=== PATIENT | female | born 1950 | race African-American/Black ===

== ENCOUNTER → 2017-08-11 | Outpatient (CLI) | payer MEDICARE, OTHER ==
--- NOTE | 2017-08-11 17:54 | WOMENS IMAGING REPORT ---
EXAM DESCRIPTION: BILAT SCREENING MAMMO W/CAD COMPLETED DATE/TIME: 08/11/2017 8:52 am REASON FOR STUDY: SCREENING MAMMO Z12.31 ENCNTR SCREEN MAMMOGRAM FOR MALIGNANT NEOPLASM OF BRY COMPARISON: Multiple 2008 TECHNIQUE: Standard craniocaudal and mediolateral oblique views of each breast recorded using digita l acquisition. LIMITATIONS: None. FINDINGS: Findings present which are benign by mammographic criteria. No suspicious masses, calcifi cations or architectural distortion. Pertinent benign findings: Benign left breast nodule. Benign bilateral breast parenchymal calcificat ions. Read with the assistance of CAD. .[facility] - R2 Cenova Version 1.3 .[facility] - R2 Cenova Version 1.3 .[facility] - R2 Cenova Version 2.4 .[facility] [place] - R2 Cenova Version 2.4 .[facility] - R2 Invasive Cardiologist Version 9.2 Benign mammographic findings may include one or more of the following: Smooth masses, popcorn/rim/co arse calcifications, asymmetries, post-procedure changes, and lesions with long-standing stability. IMPRESSION: BENIGN MAMMOGRAPHIC FINDINGS. BIRADS 2 BREAST DENSITY: b. There are scattered areas of fibroglandular density. BIRAD: 2 BENIGN FINDING(S) RECOMMENDATION: ROUTINE SCREENING Please consider bilateral screening tomosynthesis in August 2018 COMMENT: The patient has been notified of the results by letter per SA requirements. Additional no tification policies are in place for contacting patient with suspicious or incomplete findings. Quality ID #[id number]: The [employer] recommends an annual screening mammogram for women aged 40 years or over. This facility utilizes a reminder system to ensure that all patients receive reminder letters, and/or direct phone calls for appointments. This includes reminders for routine scr eening mammograms, diagnostic mammograms, or other Breast Imaging Interventions when appropriate. Th is patient will be placed in the appropriate reminder system. The [employer] (ACR) has developed recommendations for screening MRI of the breast s in certain patient populations, to be used in conjunction with mammography. Breast MRI surveillanc e may be appropriate for women with more than 20% lifetime risk of developing breast cancer as deter mined by genetic testing, significant family history of the disease, or history of mantle radiation f or Hodgkins Disease. ACR Practice Guidelines 2008. TECHNICAL DOCUMENTATION: FINDING NUMBER: (1) ASSESSMENT: (1) JOB ID: [id number] [employer]- All Rights Reserved
== END ==
LOC: WI 08:28
PROVIDERS: ATTEND Family Medicine
DX: Z12.31 Encounter for screening mammogram for malignant neoplasm of breast (principal)
CPT/HCPCS: 77067; G0202

== ENCOUNTER 2017-09-06 06:22 | Day surgery (SDC) | payer MEDICARE, OTHER ==
[2017-09-06 07:30] LABS: HEMATOCRIT 37.9 % (36.0-47.0); HEMOGLOBIN 12.4 g/dL (12.0-15.5); HGB HCT DIFFERENCE -0.7; MEAN CORPUSCULAR HEMOGLOBIN 27.1 pg (27.0-33.4); MEAN CORPUSCULAR HGB CONC 32.8 g/dL (32.0-36.0); MEAN CORPUSCULAR VOLUME 83 fl (80-97); RED BLOOD COUNT 4.59 10^6/uL (3.72-5.28); WHITE BLOOD COUNT 5.9 10^3/uL (4.0-10.5)
[2017-09-06] MEDS ORDERED: NALOXONE HCL INJ/PF 0.4 MG/1 ML SDV ONE (08:00)
[2017-09-06] MEDS ORDERED: GLYCOPYRROLATE INJ 0.4 MG/2 ML VIAL ONE (08:00)
[2017-09-06] MEDS ORDERED: ONDANSETRON HCL INJ/PF 4 MG/2 ML SDV ONE (08:00)
[2017-09-06] MEDS ORDERED: MIDAZOLAM 2 MG/2 ML INJ ONE (08:01)
[2017-09-06] MEDS ORDERED: FENTANYL CITRATE INJ/PF 100 MCG/2 ML AMPUL ONE (08:01)
[2017-09-06] MEDS ORDERED: GLUCAGON,HUMAN RECOMB 1 MG INJ ONE (08:02)
[2017-09-06] MEDS ORDERED: FLUMAZENIL INJ 0.5 MG/5 ML VIAL ONE (08:02)
[2017-09-06] MEDS ORDERED: EPINEPHRINE INJ 1 MG/10 ML DISP.SYRIN ONE (08:02)
--- NOTE | 2017-09-06 08:48 | Operative Report ---
Operative Report DATE OF SURGERY: 09/06/17 PREOPERATIVE DIAGNOSIS: Internal hemorrhoids POSTOPERATIVE DIAGNOSIS: Internal hemorrhoids OPERATION: Anoscopy with hemorrhoidal banding 3 SURGEON: NAKUL POPE ANESTHESIA: Moderate Sedation TISSUE REMOVED OR ALTERED: Hemorrhoids banded COMPLICATIONS: None ESTIMATED BLOOD LOSS: Minimal INTRAOPERATIVE FINDINGS: Prominent 3 column internal hemorrhoids but without prolapse PROCEDURE: Informed consent was obtained. Patient was brought to the endoscopy suite. IV sedation with Versed and fentanyl was administered. Digital rectal exam revealed no palpable perianal masses. Anoscopy was performed which demonstrated a prominent 3 column internal hemorrhoids but no prolapse. Using the suction banding device the right anterior, right posterior, and the left lateral internal hemorrhoidal complexes were banded in sequence. Great care was taken to place the bands above the level of the dentate line. Patient had minimal discomfort during the procedure. Patient tolerated procedure well with no apparent complications and was taken to the recovery area in stable condition.
--- NOTE | 2017-09-06 08:52 | PDOC DISCHARGE SUMMARY ---
Discharge Summary (SDC) - Discharge Final Diagnosis: Internal hemorrhoids Date of Surgery: 09/06/17 Discharge Date: 09/06/17 Condition: Good Treatment or Instructions: Underwent anoscopy with hemorrhoidal banding 3. January discharge patient home when met discharge criteria. Follow-up with me in 2 weeks. Prescriptions: Docusate Sodium [Colace 100 mg Capsule] 100 mg PO DAILY #30 capsule Referrals: SALINAS BRIGGS MD [Primary Care Provider] - Discharge Diet: As Tolerated Discharge Activity: Activity As Tolerated Report the Following to Your Physician Immediately: Increase in Pain - Normal to have mild discomfort but not severe pain, Fever over 101 Degrees, Unusual Bleeding - Normal to have small amounts of bleeding Other Items to Report to MD: Inability to urinate
[2017-09-06 11:11] VITALS: BP 145/70
== END 2017-09-06 09:55 | disposition home or self-care (01) ==
LOC: END 06:22
PROVIDERS: ATTEND Surgery
PROC: 06LY4CC Occlusion of Hemorrhoidal Plexus with Extraluminal Device, Percutaneous Endoscopic Approach (ICD-10-PCS; principal; 2017-09-06 08:15)
DX: K64.8 Other hemorrhoids (principal); I10 Essential (primary) hypertension; Z79.899 Other long term (current) drug therapy
CPT/HCPCS: 46221; 36415; 85027; J2250; J3010; 46600; J0171; J1610; J2310; J2405; J3490

== ENCOUNTER → 2018-08-21 | Outpatient (CLI) | payer MEDICARE, OTHER ==
--- NOTE | 2018-08-21 15:51 | WOMENS IMAGING REPORT ---
EXAM DESCRIPTION: 3D SCREENING MAMMO BILAT COMPLETED DATE/TIME: 08/21/2018 11:59 am REASON FOR STUDY: BILATERAL SCREENING MAMMO 3D/Z12.31 Z12.31 ENCNTR SCREEN MAMMOGRAM FOR MALIGNANT NEOPLASM OF BRY COMPARISON: 05/05/2016 and 02/18/2014. TECHNIQUE: Standard craniocaudal and mediolateral oblique views of each breast recorded using digita l acquisition and breast tomosynthesis. LIMITATIONS: None. FINDINGS: No masses, calcifications or architectural distortion. No areas of suspicion. Read with the assistance of CAD. .[facility] - R2 Cenova Version 1.3 .[facility] Imaging - R2 Cenova Version 1.3 .[facility] - R2 Cenova Version 2.4 .[facility] - R2 Cenova Version 2.4 .[facility] - R2 Eap Counselor Version 9.2 IMPRESSION: NORMAL MAMMOGRAM. BIRADS 1. BREAST DENSITY: b. There are scattered areas of fibroglandular density. BIRAD: 1 NEGATIVE RECOMMENDATION: ROUTINE SCREENING COMMENT: The patient has been notified of the results by letter per SA requirements. Additional no tification policies are in place for contacting patient with suspicious or incomplete findings. Quality ID #[id number]: The [employer] recommends an annual screening mammogram for women aged 40 years or over. This facility utilizes a reminder system to ensure that all patients receive reminder letters, and/or direct phone calls for appointments. This includes reminders for routine scr eening mammograms, diagnostic mammograms, or other Breast Imaging Interventions when appropriate. Th is patient will be placed in the appropriate reminder system. The [employer] (ACR) has developed recommendations for screening MRI of the breast s in certain patient populations, to be used in conjunction with mammography. Breast MRI surveillanc e may be appropriate for women with more than 20% lifetime risk of developing breast cancer as deter mined by genetic testing, significant family history of the disease, or history of mantle radiation f or Hodgkins Disease. ACR Practice Guidelines 2008. DBT Technology DBT is a type of tomographic mammography. With conventional mammography, overlapping breast tissue ma y make lesions difficult to detect, even with good compression. DBT uses an x-ray tube that rotates a round the breast, taking images at different angles. These images are then combined to create thin sl ices of the breast that the radiologist can view as a 3D reconstruction. The C3L3B Digital unit can perform full-field digital mammograms (2D imaging); or DBT (3D imaging); or both, in a combination mode that quickly performs both the mammogram and the tomosynthesis scan while the breast is still compressed. PQRS 6045F: Fluoroscopic imaging is not utilized for breast tomosynthesis. TECHNICAL DOCUMENTATION: FINDING NUMBER: (1) ASSESSMENT: (1) JOB ID: [id number] [employer]- All Rights Reserved Reading location - IP/workstation name: [facility]
== END ==
LOC: WI 11:33
PROVIDERS: ATTEND Family Medicine
DX: Z12.31 Encounter for screening mammogram for malignant neoplasm of breast (principal)
CPT/HCPCS: 77063; 77067

== ENCOUNTER → 2019-07-09 | Outpatient (CLI) | payer MEDICARE, OTHER | LOC: OD 15:43 | PROVIDERS: ATTEND Otolaryngology | DX: J30.9 Allergic rhinitis, unspecified (principal) | CPT/HCPCS: 36415; 82785; 86003 ==

== ENCOUNTER → 2019-11-19 | Outpatient (CLI) | payer MEDICARE, OTHER ==
--- NOTE | 2019-11-19 16:38 | WOMENS IMAGING REPORT ---
EXAM DESCRIPTION: 3D SCREENING MAMMO BILAT COMPLETED DATE/TIME: 11/19/2019 10:32 am REASON FOR STUDY: Z12.31 SCREENING MAMMO Z12.31 ENCNTR SCREEN MAMMOGRAM FOR MALIGNANT NEOPLASM OF B RE COMPARISON: Multiple since 2007 EXAM PARAMETERS: Views: Standard craniocaudal and mediolateral oblique views of each breast recorded using digital acquisition and breast tomosynthesis. Read with the assistance of CAD. .[facility] - Auditude Assessment Specialist Version 9.2 LIMITATIONS: None. FINDINGS: No suspicious masses, suspicious calcifications or architectural distortion. No areas of c oncern. IMPRESSION: NEGATIVE MAMMOGRAM. BIRADS 1. BREAST DENSITY: b. There are scattered areas of fibroglandular density. BIRAD: ASSESSMENT: 1 NEGATIVE RECOMMENDATION: ROUTINE SCREENING Please continue yearly bilateral screening mammography/tomosynthesis in November 2020 COMMENT: The patient has been notified of the results by letter per MQSA requirements. Additional no tification policies are in place for contacting patient with suspicious or incomplete findings. Quality ID #[id number]: The [employer] recommends an annual screening mammogram for women aged 40 years or over. This facility utilizes a reminder system to ensure that all patients receive reminder letters, and/or direct phone calls for appointments. This includes reminders for routine scr eening mammograms, diagnostic mammograms, or other Breast Imaging Interventions when appropriate. Th is patient will be placed in the appropriate reminder system. TECHNICAL DOCUMENTATION: FINDING NUMBER: (1) ASSESSMENT: (1) JOB ID: [id number] 2010 [employer]- All Rights Reserved Reading location - IP/workstation name: [facility]
== END ==
LOC: WI 10:05
PROVIDERS: ATTEND Internal Medicine Geriatric Medicine
DX: Z12.31 Encounter for screening mammogram for malignant neoplasm of breast (principal)
CPT/HCPCS: 77063; 77067

== ENCOUNTER 2020-03-14 03:09 | Emergency (ER) | payer MEDICARE, OTHER ==
[2020-03-14] MEDS ORDERED: ACETAMINOPHEN 325 MG TABLET PO ONE (03:34)
--- NOTE | 2020-03-14 04:31 | RADIOLOGY REPORT (SQ) ---
EXAM DESCRIPTION: XR FOOT 3 OR MORE VIEWS COMPLETED DATE/TME: 03/14/2020 03:34 CLINICAL HISTORY: 69 years, Female, PAIN COMPARISON: None. NUMBER OF VIEWS: 3 TECHNIQUE: 3 views left foot LIMITATIONS: None. FINDINGS: Osteopenia. Negative for acute fracture or dislocation. Mild degenerative changes of the midfoot. Tiny calcaneal spurs. Soft tissues are unremarkable IMPRESSION: Osteopenia with minor degenerative change copyright 2010 [employer]- All Rights Reserved
--- NOTE | 2020-03-14 05:12 | ER Document Report ---
ED General - General Chief Complaint: Foot Pain Stated Complaint: LEFT FOOT PAIN Primary Care Provider: PEDRO CACERES MD [Primary Care Provider] - Follow up as needed Notes: Patient is a 69-year-old -[place] female with a history of hypertension and prior stress reaction of the right foot who presents to the emergency department with a chief complaint of left foot pain that began earlier today. She states that she used to walk from time to time but recently retired and started walking more, approximately 5 miles per day in the mornings. She states the top of the left foot began hurting today and is not improving so she came for evaluation. She seen a heel nail rasper in the past for the right foot and was booted. She denies any traumatic injury, redness or increased warmth. No history of gout. TRAVEL OUTSIDE OF THE [place] IN LAST 30 DAYS: No - Related Data Allergies/Adverse Reactions: No Known Allergies Allergy (Verified 03/14/20 03:28) Home Medications: HTN MEDS. ALLERGIES Past Medical History - Social History Smoking Status: Never Smoker Frequency of alcohol use: Occasional Drug Abuse: None Family History: None Patient has homicidal ideation: No - Past Medical History Cardiac Medical History: Reports: Hx Hypertension Denies: Hx Coronary Artery Disease, Hx Heart Attack Pulmonary Medical History: Denies: Hx Asthma, Hx Bronchitis, Hx COPD, Hx Pneumonia Neurological Medical History: Denies: Hx Cerebrovascular Accident, Hx Seizures Musculoskeletal Medical History: Denies Hx Arthritis Past Surgical History: Reports: Hx Hysterectomy - Immunizations Hx Diphtheria, Pertussis, Tetanus Vaccination: Yes Hx Pneumococcal Vaccination: 10/03/15 Review of Systems - Review of Systems Musculoskeletal: Other - Foot pain -: Yes All other systems reviewed and negative Physical Exam - Vital signs Vitals: Temp Pulse Resp BP Pulse Ox 99.4 F 72 16 140/78 H 100 03/14/20 03:15 03/14/20 03:15 03/14/20 03:15 03/14/20 03:15 03/14/20 03:15 - General General appearance: Appears well, Alert In distress: None - Respiratory Respiratory status: No respiratory distress Chest status: Nontender Breath sounds: Normal Chest palpation: Normal - Cardiovascular Rhythm: Regular Heart sounds: Normal auscultation - Extremities General lower extremity: Other - Tenderness to the dorsum of the left foot ce ntrally. No increased warmth or redness. No tenderness to palpation about the lateral foot, plantar surface, heel or Achilles. Full passive range of motion of the left ankle and foot. Gait slightly limited by pain. No deformity step- off or crepitus or significant swelling. - Neurological Neuro grossly intact: Yes Cognition: Normal Orientation: AAOx4 - Psychological Associated symptoms: Normal affect, Normal mood - Skin Skin Temperature: Warm Skin Moisture: Dry Skin Color: Normal Course - Re-evaluation Re-evalutation: 03/14/20 05:13 We discussed the findings of osteopenia. The patient states that she gets vitamin D from the sun but takes no other supplementations of vitamin D or calcium. She has an appointment next week with her doctor and will discuss the osteopenia. Given this finding it is very possible that she could have a stress fracture on identified by x-ray that may require MRI and podiatry involvement. We will utilize conservative measures and have the patient see her PCP as scheduled next week for reevaluation and if necessary referral to podiatry for possible MRI and further outpatient management. Given indomethacin and discussed rice. Counseled her at length regarding the importance of outpatient follow-up and advised that she return here or any ER immediately with any new, persistent or worsening symptoms. She verbalized understood and agreed. - Vital Signs Vital signs: Temp Pulse Resp BP Pulse Ox 99.4 F 72 16 140/78 H 100 03/14/20 03:28 03/14/20 03:15 03/14/20 03:15 03/14/20 03:15 03/14/20 03:15 Discharge - Discharge Clinical Impression: Foot pain Qualifiers: Laterality: left Qualified Code(s): M79.672 - Pain in left foot Osteopenia Qualifiers: Osteopenia location: foot Laterality: left Qualified Code(s): M85.872 - Other specified disorders of bone density and structure, left ankle and foot Condition: Stable Disposition: HOME, SELF-CARE Instructions: Ice & Elevation ([facility]) Additional Instructions: Given the finding of osteopenia today it is possible that you have a stress fracture on identified by x-ray. Please rest the foot as discussed. See your primary doctor as scheduled next week for reevaluation. If there is no improvement you may need to see a heel nail rasper and have MRIs for identification of a possible stress fracture. In the interim you be given a short course of Indocin for pain and inflammation. Please talk to your primary doctor as well about her osteopenia for correction and outpatient management. Please return here or any ER immediately with any new, persistent or worsening symptoms. Prescriptions: Indomethacin [Indocin 50 mg Capsule] 50 mg PO TID #15 capsule Referrals: PEDRO CACERES MD [Primary Care Provider] - Follow up as needed
[2020-03-14 05:15] VITALS: BP 142/76
== END 2020-03-14 05:15 | disposition home or self-care (01) ==
LOC: ER 03:09
DX: M85.872 Other specified disorders of bone density and structure, left ankle and foot (principal); M79.672 Pain in left foot; I10 Essential (primary) hypertension; Z79.899 Other long term (current) drug therapy
CPT/HCPCS: 99283; 73630; A9270

== ENCOUNTER → 2020-08-14 | Outpatient (CLI) | payer MEDICARE, OTHER ==
--- NOTE | 2020-08-14 11:41 | RADIOLOGY REPORT (SQ) ---
EXAM DESCRIPTION: CT ABD/PELVIS NO ORAL OR IV IMAGES COMPLETED DATE/TIME: 08/14/2020 7:28 am REASON FOR STUDY: ABDOMINAL PAIN R10.9 UNSPECIFIED ABDOMINAL PAIN COMPARISON: 04/21/2016 TECHNIQUE: CT scan of the abdomen and pelvis performed without intravenous or oral contrast. Images reviewed with lung, soft tissue, and bone windows. Reconstructed coronal and sagittal MPR images revi ewed. All images stored on PACS. All CT scanners at this facility use dose modulation, iterative reconstruction, and/or weight based d osing when appropriate to reduce radiation dose to as low as reasonably achievable (ALARA). [facility]: Dose Right [facility]: CareDose [facility]: Dose Right [facility]: Teradose 4D [facility]: Bitvore RADIATION DOSE: CT Rad equipment meets quality standard of care and radiation dose reduction techniq ues were employed. CTDIvol: 10.6 mGy. DLP: 545 mGy-cm.mGy. LIMITATIONS: None. FINDINGS: LOWER CHEST: No significant findings. No nodules or infiltrates. NON-CONTRASTED LIVER, SPLEEN, ADRENALS: Evaluation limited by lack of IV contrast. No identified sign ificant masses. PANCREAS: No masses. No peripancreatic inflammatory changes. GALLBLADDER: Surgically absent. RIGHT KIDNEY AND URETER: No suspicious masses. Assessment limited by lack of IV contrast. No signif icant calcifications. No hydronephrosis or hydroureter. LEFT KIDNEY AND URETER: No suspicious masses. Assessment limited by lack of IV contrast. No signifi cant calcifications. No hydronephrosis or hydroureter. AORTA AND RETROPERITONEUM: No aneurysm. No retroperitoneal masses or adenopathy. BOWEL AND PERITONEAL CAVITY: Sigmoid diverticulosis. No obvious masses or inflammatory changes. No f ree fluid. APPENDIX: Normal. PELVIS, BLADDER, AND ABDOMINAL WALL:No abnormal masses. No free fluid. Bladder normal. BONES: No significant findings. OTHER: No other significant finding. IMPRESSION: No acute findings. Sigmoid diverticulosis without evidence of diverticulitis. COMMENT: Quality ID # [id number]: Final reports with documentation of one or more dose reduction techniques (e.g., Automated exposure control, adjustment of the mA and/or kV according to patient size, use of iterative reconstruction technique) TECHNICAL DOCUMENTATION: JOB ID: [id number] 2010 [employer]- All Rights Reserved Reading location - IP/workstation name: [email or web address]
--- OUTSIDE RECORDS SUMMARY | 2020-08-15 14:57 | XMS REPORT ---
:1950 [facility] [address] [place] [address] Care Team Providers Name Role Phone Unavailable Unavailable Unavailable Allergies, Adverse Reactions, Alerts Allergy Name Allergy Status Severity Reaction(s) Onset Inactive Treat ing Comments Type Date Date Clinician Lisinopril Allergy to Active Moderate Cough substance Medications Ordered Filled Start Stop Current Ordering Indication Dosage Frequency Signature Comments Components Medication Medication Date Date Medication? Clinician (SIG) Name Name Tylenol No 2 Q8H Tylenol Arthritis Arthritis Pain 650 mg Pain 650 tablet,exte mg nded tablet,ext release ended Take 2 release tablets Take 2 every 8 tablets hours by every 8 oral route hours by as needed oral route for 90 as needed days. for 90 days. cetirizine No cetirizine 10 mg 10 mg tablet TAKE tablet 1 TABLET BY TAKE 1 MOUTH ONCE TABLET BY DAILY FOR MOUTH ONCE 60 DAYS DAILY FOR 60 DAYS Ecotrin Low No 1 Q1D Ecotrin Strength 81 Low mg Strength tablet,ente 81 mg gwendolyn coated tablet,ent Take 1 keely tablet coated every day Take 1 by oral tablet route for every day 365 days. by oral route for 365 days. hydrochloro No hydrochlor thiazide othiazide 12.5 mg 12.5 mg tablet TAKE tablet 1 TABLET BY TAKE 1 MOUTH ONCE TABLET BY DAILY MOUTH ONCE DAILY valsartan No valsartan 160 mg 160 mg tablet TAKE tablet 1 TABLET BY TAKE 1 MOUTH ONCE TABLET BY DAILY MOUTH ONCE DAILY aspirin 81 No aspirin 81 mg mg tablet,joanne tablet,del yed release ayed TAKE 1 release TABLET BY TAKE 1 MOUTH ONCE TABLET BY DAILY MOUTH ONCE DAILY fluticasone No 2spray( Q1D fluticason propionate s) e 50 propionate mcg/actuati 50 on nasal mcg/actuat spray,suspe ion nasal nsion Elsie spray,susp 2 sprays ension every day Elsie 2 by sprays intranasal every day route for by 30 days. intranasal route for 30 days. lansoprazol No 1capsul Q1D lansoprazo e 30 mg e(s) le 30 mg capsule,del capsule,de ayed layed release release Take 1 Take 1 capsule capsule every day every day by oral by oral route for route for 30 days. 30 days. lisinopril No 1 Q1D lisinopril 20 20 mg-hydrochl mg-hydroch orothiazide lorothiazi 12.5 mg de 12.5 mg tablet Take tablet 1 tablet Take 1 every day tablet by oral every day route for by oral 90 days. route for 90 days. Mucinex DM No 1 Q12H Mucinex DM 30 mg-600 30 mg-600 mg mg tablet,exte tablet,ext nded ended release 12 release 12 hr Take 1 hr Take 1 tablet tablet every 12 every 12 hours by hours by oral route oral route as needed as needed for 30 for 30 days. days. scopolamine No 1patch( scopolamin 1 mg over 3 es) e 1 mg days over 3 transdermal days patch Apply transderma 1 patch l patch every 72 Apply 1 hours by patch transdermal every 72 route. hours by transderma l route. Zyrtec 10 No 1 Q1D Zyrtec 10 mg tablet mg tablet Take 1 Take 1 tablet tablet every day every day by oral by oral route at route at bedtime. bedtime. ipratropium No 2spray( TID ipratropiu bromide 42 s) m bromide mcg (0.06 42 mcg %) nasal (0.06 %) spray Elsie nasal 2 sprays 3 spray times a day Elsie 2 by sprays 3 intranasal times a route as day by needed. intranasal route as needed. montelukast No 1 Q1D montelukas 10 mg t 10 mg tablet Take tablet 1 tablet Take 1 every day tablet by oral every day route for by oral 30 days. route for 30 days. omeprazole No 1capsul BID omeprazole 20 mg e(s) 20 mg capsule,del capsule,de ayed layed release release Take 1 Take 1 capsule capsule twice a day twice a by oral day by route for oral route 30 days. for 30 days. valsartan No 1 Q1D valsartan 160 160 mg-hydrochl mg-hydroch orothiazide lorothiazi 12.5 mg de 12.5 mg tablet Take tablet 1 tablet Take 1 every day tablet by oral every day route for by oral 90 days. route for 90 days. Problems Condition Condition Condition Status Onset Resolution Last Treatin g Comments Name Details Category Date Date Treatment Clinician Date Hyperlipide Hyperlipide Problem Active roseanne roseanne Essential Essential Problem Active hypertensio Hypertensio n n Gastroesoph Gastroesoph Problem Active ageal ageal reflux Reflux disease Disease Procedures Procedure Date / Time Performed Performing Clinician Devic e ELECTROCARDIOGRAM COMPLETE 2020-05-19 00:00:00 ELECTROCARDIOGRAM COMPLETE 2020-03-17 00:00:00 ELECTROCARDIOGRAM COMPLETE 2020-01-14 00:00:00 MAMMO, screening, digital, 2019-10-29 00:00:00 bilateral bone density 2019-10-29 00:00:00 ELECTROCARDIOGRAM COMPLETE 2019-09-17 00:00:00 evoked potential 2019-04-27 00:00:00 Cholecystectomy Lumpectomy of Breast Eye Surgery Results Test Description Test Time Test Comments Text Results Atomic Results Result Comments lipid panel, blood 2020-06-17 16:35:00 Test Item Value Reference Range Comments TC (<200 mg/dL) (test code = TC (<200 mg/dL)) 215 mg/dL <2 00 mg/dL HDL (40-60 mg/dL) (test code = HDL (40-60 mg/dL)) 66 mg/dL 40-60 mg/dL trig (<150 mg/dL) (test code = trig (<150 mg/dL)) 101 mg/dL <150 mg/dL LDL (<100 mg/dL) (test code = LDL (<100 mg/dL)) 129 mg/dL <100 non-HDL (<130 mg/dL) (test code = non-HDL (<130 mg/dL)) 149 mg/d L <130 mg/dL LDL/HDL ratio (4.5 or less) (test code = LDL/HDL ratio (4.5 1.9 mg/dL 4.5 or less or less)) 10yr CHD risk (test code = 10yr CHD risk) % test code: 560541 (test code = test code: 741354) EKG [id number] 08:30:00 Test Item Value Reference Range Comments Rate & Rhythm (test code = Rate & 65 bmp/sinus rhythm Rhythm) QRS (test code = QRS) 72 ms QRS Duration (test code = QRS Duration) 72 ms SC Interval (test code = SC Interval) 182 ms QT Interval (test code = QT Interval) 428 ms visual [id number] 08:38:13 Test Item Value Reference Range Comments R Eye Uncorrected (test code = R Eye Uncorrected) 20/25 L Eye Uncorrected (test code = L Eye Uncorrected) 20/32 R Eye Corrected (test code = R Eye Corrected) 20/32 L Eye Corrected (test code = L Eye Corrected) 20/20 lipid panel, [id number] 09:22:00 Test Item Value Reference Range Comments TC (<200 mg/dL) (test code = TC (<200 mg/dL)) 252 mg/dL <2 00 mg/dL HDL (40-60 mg/dL) (test code = HDL (40-60 mg/dL)) 70 mg/dL 40-60 mg/dL trig (<150 mg/dL) (test code = trig (<150 mg/dL)) 120 mg/dL <150 mg/dL LDL (<100 mg/dL) (test code = LDL (<100 mg/dL)) 158 mg/dL <100 non-HDL (<130 mg/dL) (test code = non-HDL (<130 182 mg/dL <130 mg/dL mg/dL)) TC/HDL ratio (4.5 or less) (test code = TC/HDL 3.6 mg/dL 4 .5 or less ratio (4.5 or less)) 10yr CHD risk (test code = 10yr CHD risk) % test code: 189618 (test code = test code: 004479) lipid panel, [id number] 09:22:00 Test Item Value Reference Range Comments TC (<200 mg/dL) (test code = TC (<200 mg/dL)) 252 mg/dL <2 00 mg/dL HDL (40-60 mg/dL) (test code = HDL (40-60 mg/dL)) 70 mg/dL 40-60 mg/dL trig (<150 mg/dL) (test code = trig (<150 mg/dL)) 120 mg/dL <150 mg/dL LDL (<100 mg/dL) (test code = LDL (<100 mg/dL)) 158 mg/dL <100 non-HDL (<130 mg/dL) (test code = non-HDL (<130 182 mg/dL <130 mg/dL mg/dL)) TC/HDL ratio (4.5 or less) (test code = TC/HDL 3.6 mg/dL 4 .5 or less ratio (4.5 or less)) 10yr CHD risk (test code = 10yr CHD risk) % test code: 854146 (test code = test code: 590945) CBC W Auto Differential panel - [id number] 08:53:00 Test Item Value Reference Range Comments WBC (test code = WBC) 6.6 K/uL 4.1-10.9 lym% (test code = lym%) 51.6 % 10.0-58.5 lym# (test code = lym#) 3.4 % 0.6-4.1 mxd# (test code = mxd#) 1.0 % 0.0-1.8 mxd% (test code = mxd%) 14.9 % 0.1-24.0 gran (test code = gran) 2.2 % 2.0-7.8 gran% (test code = gran%) 33.5 % 37.0-92.0 RBC (test code = RBC) 4.63 M/uL 4.20-6.30 HGB (test code = HGB) 12.5 g/dL 14.1-18.1 HCT (test code = HCT) 39.3 % 34.5-53.7 MCV (test code = MCV) 84.9 fL 80.0-97.0 MCH (test code = MCH) 27.0 pg 26.0-32.0 MCHC (test code = MCHC) 31.8 g/dL 31.0-36.0 RDW (test code = RDW) 14.3 % 11.5-14.5 plt (test code = plt) 292 K/uL 140-440 MPV (test code = MPV) 7.1 fL 0.0-99.8 Comprehensive metabolic 2000 panel - Serum or [id number] 00:00:00 Test Item Value Reference Range Comments calcium (test code = calcium) 10.1 mg/dL 8.4-10.2 glucose (test code = glucose) 89 mg/dL 75-110 blood urea nitrogen (test code = blood urea 13 mg/dL 7-20 nitrogen) creatinine result (test code = creatinine 0.89 mg/dL 0.52-1 .25 result) eGFR,non (test code = eGFR,non > 60 >60 ) eGFR, (test code = eGFR, > 60 >60 polish) potassium (test code = potassium) 4.4 mmol/L 3.6-5.0 chloride (test code = chloride) 100 mmol/L 98-107 carbon dioxide (test code = carbon dioxide) 32 mmol/L 22-3 0 sodium (test code = sodium) 140.5 mmol/L 137-145 anion gap (test code = anion gap) 9 5-19 albumin (test code = albumin) 4.4 g/dL 3.5-5.0 aspartate amino transferase (test code = 34 U/L 14-36 aspartate amino transferase) alkaline phosphatase (test code = alkaline 91 U/L 38-12 6 phosphatase) alanine aminotransferase (test code = alanine 32 U/L 9- 52 aminotransferase) bilirubin,total (test code = bilirubin,total) 0.5 mg/dL 0. 2-1.3 bilirubin,direct (test code = bilirubin,direct) 0.2 mg/dL 0.0-0.4 total protein (test code = total protein) 7.6 g/dL 6.3-8. 2 Comprehensive metabolic 2000 panel - Serum or [id number] 00:00:00 Test Item Value Reference Range Comments calcium (test code = calcium) 10.1 mg/dL 8.4-10.2 glucose (test code = glucose) 89 mg/dL 75-110 blood urea nitrogen (test code = blood urea 13 mg/dL 7-20 nitrogen) creatinine result (test code = creatinine 0.89 mg/dL 0.52-1 .25 result) eGFR,non (test code = eGFR,non > 60 >60 ) eGFR, (test code = eGFR, > 60 >60 polish) potassium (test code = potassium) 4.4 mmol/L 3.6-5.0 chloride (test code = chloride) 100 mmol/L 98-107 carbon dioxide (test code = carbon dioxide) 32 mmol/L 22-3 0 sodium (test code = sodium) 140.5 mmol/L 137-145 anion gap (test code = anion gap) 9 5-19 albumin (test code = albumin) 4.4 g/dL 3.5-5.0 aspartate amino transferase (test code = 34 U/L 14-36 aspartate amino transferase) alkaline phosphatase (test code = alkaline 91 U/L 38-12 6 phosphatase) alanine aminotransferase (test code = alanine 32 U/L 9- 52 aminotransferase) bilirubin,total (test code = bilirubin,total) 0.5 mg/dL 0. 2-1.3 bilirubin,direct (test code = bilirubin,direct) 0.2 mg/dL 0.0-0.4 total protein (test code = total protein) 7.6 g/dL 6.3-8. 2 Assessments Condition Name Status Diagnosis Date Treating Clinici an Gastroesophageal reflux disease 2020-06-17 08:25 :52 Hyperlipidemia 2020-06-17 08:25:55 Essential hypertension 2020-06-17 08:25:56 Essential hypertension 2020-05-19 08:13:59 Degenerative joint disease involving 2020-05-19 08:37:32 multiple joints Body mass index 30+ - obesity 2020-05-19 08:40:1 6 Pain in both feet 2020-03-17 09:23:48 Essential hypertension 2020-03-17 08:29:47 Hyperlipidemia 2020-03-17 08:29:48 Body mass index 30+ - obesity 2020-03-17 09:02:2 5 Gastroesophageal reflux disease 2020-01-14 08:50 :25 Hyperlipidemia 2020-01-14 08:50:26 Essential hypertension 2020-01-14 08:50:27 Adult health examination 2019-10-29 08:19:02 Immunization 2019-10-29 08:19:02 Screening for malignant neoplasm of 2019-10-29 0 8:19:02 breast Screening for osteoporosis 2019-10-29 08:19:02 Screening for malignant neoplasm of 2019-10-29 0 8:19:02 colon Advance directive discussed with 2019-10-29 08:1 9:02 patient Screening for cardiovascular system 2019-10-29 0 8:19:02 disease Essential hypertension 2019-10-08 08:06:21 Gastroesophageal reflux disease 2019-10-08 08:36 :08 Gastroesophageal reflux disease Active 2019-09-17 08:35 :21 Essential hypertension Active 2019-09-17 08:35:19 Perennial allergic rhinitis with Active 2019-09-17 09:3 3:58 seasonal variation Hyperlipidemia Active 2019-09-17 09:45:24 Perennial allergic rhinitis with Active 2019-05-28 15:1 2:12 seasonal variation Perennial allergic rhinitis with Active 2019-05-07 16:5 8:58 seasonal variation Essential hypertension Active 2019-04-27 13:15:25 Hyperlipidemia Active 2019-04-27 13:15:37 Seasonal allergy Active 2019-04-27 13:32:00 Gastroesophageal reflux disease Active 2019-04-27 13:41 :41 Memory impairment Active 2019-04-27 13:47:50 Motion sickness Active 2019-04-27 14:12:47 Encounters Start End Encounter Admission Attending Care Care Encounter Date/Time Date/Time Type Type Clinicians Facility Department ID 2020-06-17 2020-06-17 [facility] _2019 00:00:00 00:00:00 Colby Clark 0915 [facility] Medical MD: [address] [place] [address] , Ph. 2020-05-19 2020-05-19 [facility] 24_2019 00:00:00 00:00:00 Colby Clark 0817 [facility] Medical MD: [address] [place] [address] , Ph. 2020-03-17 2020-03-17 [facility] 24_2019 00:00:00 00:00:00 Colby Clark 0615 [facility] Medical MD: [address] [place] [address] , Ph. 2020-01-14 2020-01-14 [facility] 24_2019 00:00:00 00:00:00 Jerome Amber Clark [address] [place] [address] , Ph. 2019-10-29 2019-10-29 [facility] 24_2019 00:00:00 00:00:00 Colby Clark [facility] [facility] MD: [address] [place] [address] , Ph. 2019-10-08 2019-10-08 [facility] 00:00:00 00:00:00 [facility] [address] [facility] MD: [address] [place] [address] , Ph. 2019-09-17 2019-09-17 [facility] 00:00:00 00:00:00 [facility] [facility] MD: [address] [place] [address] , Ph. 2019-05-28 2019-05-28 [facility] 00:00:00 00:00:00 [facility] [facility] MD: [address] [place] [address] , Ph. 2019-05-07 2019-05-07 [facility] 00:00:00 00:00:00 [facility] [address] [facility] MD: [address] [place] [address] , Ph. 2019-04-27 2019-04-27 [facility] 00:00:00 00:00:00 [facility] [facility] MD: [address] [place] [address] , Ph. Immunizations Ordered Immunization Filled Immunization Date Status Commen ts Refusal Reason Name Name influenza, 2019-06-21 Completed injectable, 00:00:00 quadrivalent Tdap 2012-05-31 Completed 00:00:00 Plan of Treatment Planned Activity Planned Date Details Comments Future Appointment 2020-09-16 08:15:00 Ilene Cano, [address] [place] [address]; , [place] [address] Social History Smoking Status Start Date Stop Date Never Smoker Vital Signs Vital Name Observation Time Observation Value Comments BP Diastolic 2020-06-17 00:00:00 86 mm[Hg] Height 2020-06-17 00:00:00 62 [in_i] BMI (Body Mass Index) 2020-06-17 00:00:00 34.7 kg/m2 BP Systolic 2020-06-17 00:00:00 139 mm[Hg] Body Weight 2020-06-17 00:00:00 189.6 [lb_av] BP Diastolic 2020-05-19 00:00:00 87 mm[Hg] Height 2020-05-19 00:00:00 62 [in_i] BMI (Body Mass Index) 2020-05-19 00:00:00 34.7 kg/m2 BP Systolic 2020-05-19 00:00:00 141 mm[Hg] Body Weight 2020-05-19 00:00:00 189.6 [lb_av] BP Diastolic 2020-03-17 00:00:00 97 mm[Hg] Height 2020-03-17 00:00:00 62 [in_i] BMI (Body Mass Index) 2020-03-17 00:00:00 34 kg/m2 BP Systolic 2020-03-17 00:00:00 141 mm[Hg] Body Weight 2020-03-17 00:00:00 186 [lb_av] Height 2020-01-14 00:00:00 62 [in_i] BMI (Body Mass Index) 2020-01-14 00:00:00 32.9 kg/m2 Body Weight 2020-01-14 00:00:00 180 [lb_av] BP Diastolic 2019-10-29 00:00:00 84 mm[Hg] Height 2019-10-29 00:00:00 62 [in_i] BMI (Body Mass Index) 2019-10-29 00:00:00 33.5 kg/m2 BP Systolic 2019-10-29 00:00:00 132 mm[Hg] Body Weight 2019-10-29 00:00:00 183 [lb_av] BP Diastolic 2019-10-08 00:00:00 108 mm[Hg] Height 2019-10-08 00:00:00 62 [in_i] BMI (Body Mass Index) 2019-10-08 00:00:00 34.5 kg/m2 BP Systolic 2019-10-08 00:00:00 177 mm[Hg] Body Weight 2019-10-08 00:00:00 188.8 [lb_av] BP Diastolic 2019-09-17 00:00:00 81 mm[Hg] Height 2019-09-17 00:00:00 62 [in_i] BMI (Body Mass Index) 2019-09-17 00:00:00 35.6 kg/m2 BP Systolic 2019-09-17 00:00:00 149 mm[Hg] Body Weight 2019-09-17 00:00:00 194.8 [lb_av] BP Diastolic 2019-05-28 00:00:00 94 mm[Hg] Height 2019-05-28 00:00:00 62 [in_i] BMI (Body Mass Index) 2019-05-28 00:00:00 34.9 kg/m2 BP Systolic 2019-05-28 00:00:00 166 mm[Hg] Body Weight 2019-05-28 00:00:00 190.8 [lb_av] BP Diastolic 2019-05-07 00:00:00 74 mm[Hg] Height 2019-05-07 00:00:00 62 [in_i] BMI (Body Mass Index) 2019-05-07 00:00:00 34.6 kg/m2 BP Systolic 2019-05-07 00:00:00 135 mm[Hg] Body Weight 2019-05-07 00:00:00 189.2 [lb_av] BP Diastolic 2019-04-27 00:00:00 77 mm[Hg] Height 2019-04-27 00:00:00 62 [in_i] BMI (Body Mass Index) 2019-04-27 00:00:00 34.3 kg/m2 BP Systolic 2019-04-27 00:00:00 139 mm[Hg] Body Weight 2019-04-27 00:00:00 187.6 [lb_av] Hospital Discharge Instructions 1. Essential hypertension electrocardiogram low sodium diet (2,000 milligram): care instructions dash diet: care instructions high blood pressure: care instructions Ecotrin Low Strength 81 mg tablet,enteric coated 2. Degenerative joint disease involving multiple joints osteoarthritis: care instructions 3. Body mass index 30+ - obesity starting a weight loss plan: care instructions eating healthy foods: care instructions when you are overweight: care instructions Discussion Note Patient verbalized understanding and agreement with recommended care plan. All questions and concerns were addressed and answered adequately. Follow up visit will address htn, allergy1. Essential hypertension electrocardiogram dash diet: care instructions low sodium diet(2,000 milligram): care instructions high blood pressure: care instructions 2. Hyperlipidemia high cholesterol: care instructions statins: care instructions body mass index: care instruc tions learning about healthy weight 3. Body mass index 30+ - obesity starting a weight loss plan: care instructions eating healthy foods: care instructions A healthy lifestyle: care instructions 4. Pain in both feet podiatry referral Tylenol Arthritis Pain 650 mg tablet,extended release Discussion Note Patient verbalized understanding and agreement with recommended care plan. All questions and concerns were addressed and answered adequately. Follow up visit will address htn, hld, gerd1. Gastroesophageal reflux disease gastroesophageal reflux disease (GERD): care instructions 2. Hyperlipidemia lipid panel, blood CBC w/ auto diff high cholesterol: care instructions high-fiber diet: care instructions walking for exercise: care instructions 3. Essential hypertension electrocardiogram CMP, serum or plasma high blood pressure: care instructions low sodium diet (2,000 milligram): care instructions valsartan 160 mg-hydrochlorothiazide 12.5 mg tablet Discussion Note Patient verbalized understanding and agreement with recommended care plan. Allquestions and concerns were addressed and answered adequately. Follow up visit will address HLD, HTN1. Gastroesophageal reflux disease gastroesophageal reflux disease (GERD): care instructions omeprazole 20 mg capsule,delayed release 2. Essential hypertension CMP, serum or plasma CBC w/ auto diff lipid panel, blood electrocardiogram dash diet: care instructions low sodium diet (2,000 milligram): care instructions high blood pressure: care instructions 3. Perennial allergic rhinitis with seasonal variation fluticasone propionate 50 mcg/actuation nasal spray,suspension ipratropium bromide 42 mcg (0.06 %) nasal spray 4. Hyperlipidemia high cholesterol:care instructions Discussion Note Patient verbalized understanding and agreement with recommended care plan. All questions and concerns were addressed and answered adequately. Follow up visit will address awv1. Essential hypertension CBC w/ auto diff high blood pressure: care instructions dash diet: care instructions low sodium diet (2,000 milligram): care instructions 2. Hyperlipidemia lipid panel, blood CMP, serum or plasma high cholesterol: care instructions high-fiber diet: care instructions walking for exercise: care instructions lisinopril 20 mg-hydrochlorothiazide 12.5 mg tablet 3. Seasonal allergy seasonal allergies: care instructions fluticasone propionate 50 mcg/actuation nasal spray,suspension Mucinex DM 30 mg-600 mg tablet,extended [id number] hr 4. Gastroesophageal reflux disease gastroesophageal reflux disease (GERD): care instructions lansoprazole 30 mg capsule,delayed release 5. Memory impairment evoked potential A healthy lifestyle: care instructions 6. Motion sickness motion sickness: care instructions scopolamine 1 mg over 3 days transdermal patch Discussion Note Patient verbalized understanding and agreement with recommended care plan. All questions and concerns were addressed and answered adequately. Follow up visit will address HTN, HLD, GERD
== END ==
LOC: RAD 07:32
PROVIDERS: ATTEND Surgery
DX: K57.30 Diverticulosis of large intestine without perforation or abscess without bleeding (principal); R10.9 Unspecified abdominal pain
CPT/HCPCS: 74176

== ENCOUNTER 2020-09-02 06:03 | Day surgery (SDC) | payer MEDICARE, OTHER ==
[~2020-09-02 06:03] MED LIST: ACETAMINOPHEN 325 MG TABLET PO PRN; CEFAZOLIN 2 GM/D5W RTU 2 GM/50 ML RTUPB IV PRN; IBUPROFEN 800 MG in NORMAL SALINE 250 ML IV PRN
[2020-09-02] MEDS ORDERED: CEFAZOLIN 1 GM/D5W RTU 1 GM/50 ML RTUPB IV ONE (06:27)
[2020-09-02] MEDS ORDERED: ACETAMINOPHEN 325 MG TABLET ONE (06:27)
[2020-09-02] MEDS ORDERED: CEFAZOLIN 2 GM/D5W RTU 2 GM/50 ML RTUPB IV ONE (06:40)
[2020-09-02] MEDS ORDERED: BUPIVACAINE HCL 0.25 % INJ/PF (2.5 MG/1 ML) 30 ML VIAL ONE ×2 (07:08→09:10)
[2020-09-02] MEDS ORDERED: FENTANYL CITRATE INJ/PF 250 MCG/5 ML AMPULE ONE (07:09)
[2020-09-02] MEDS ORDERED: MIDAZOLAM 2 MG/2 ML INJ ONE (07:09)
[2020-09-02] MEDS ORDERED: PROPOFOL INJ 200 MG/20 ML VIAL IV ONE (07:09)
[2020-09-02] MEDS ORDERED: MORPHINE SULFATE 10 MG/ML INJ ONE (07:09)
[2020-09-02] MEDS ORDERED: MORPHINE SULFATE 10 MG/ML INJ IV PRN (08:37)
[2020-09-02] MEDS ORDERED: FENTANYL CITRATE INJ/PF 100 MCG/2 ML AMPUL IV PRN (08:37)
[2020-09-02] MEDS ORDERED: MEPERIDINE HCL/PF INJ 25 MG/1 ML DISP.SYRIN IV PRN (08:37)
[2020-09-02] MEDS ORDERED: PROMETHAZINE HCL INJ 25 MG/1 ML VIAL IV PRN (08:37)
[2020-09-02] MEDS ORDERED: DIPHENHYDRAMINE HCL 50 MG/ML VIAL IV PRN (08:37)
--- NOTE | 2020-09-02 10:00 | Operative Report ---
Nonrecallable Operative Report DATE OF SURGERY: 09/02/20 PREOPERATIVE DIAGNOSIS: Right inguinal hernia, mass of mons pubis POSTOPERATIVE DIAGNOSIS: 1. Indirect right inguinal hernia. 2. 9 cm lipoma of the mons pubis. OPERATION: 1. Robot-assisted right inguinal hernia repair with mesh. 2. Excision of a 9 cm mons pubis lipoma. 3. Intermediate closure of a 4 cm mons pubis incision. SURGEON: WOOD BURR 1ST NANNY BABYSITTER: SHELBY HENRIQUEZ ANESTHESIA: GA TISSUE REMOVED OR ALTERED: 9 centimeter mons pubis lipoma COMPLICATIONS: None apparent ESTIMATED BLOOD LOSS: Minimal PROCEDURE: Drain/implants: Large right inguinal hernia mesh (3 DMax). Indication for the procedure: The patient presented with right groin pain and a large mass over the mons pubis. CT scan confirmed a right inguinal hernia. Patient was scheduled for right inguinal hernia repair with mesh, with the possibility of external removal of the mons pubis mass. Procedure in detail: After informed consent was obtained, the patient was brought to the operating room and laid in the supine position. The area of the abdomen was prepped and draped in a normal sterile fashion. A supraumbilical incision was created with a 15 blade scalpel. Dissection was carried through the subcutaneous tissues using sharp and blunt dissection. The linea alba fascia was incised sharply, the abdomen was entered sharply. The balloon trocar was inserted, and pneumoperitoneum was achieved. 2 right and left 8 mm robotic trochars were placed into the abdominal wall under direct laparoscopic visualization. After this was confirmed, the robot was brought over the patient and docked appropriately. I then assumed my position at the surgeon's console. The right groin was inspected. There was a large indirect inguinal hernia defect identified. A preperitoneal flap was created 2 to 3 cm superior to the defect. The dissection was carried out using electrocautery, sharp dissection, and blunt dissection. The hernia sac was reduced back into the abdomen. A large lipoma of the cord was also reduced. The round ligament was divided, and reduced back into the preperitoneal space. Next a large right 3D max inguinal hernia mesh was placed into the preperitoneal space. It was sutured medially and superiorly using 2-0 Vicryl suture. Next, the peritoneal defect was closed using 2-0 VLock suture in simple running fashion. The robot was then undocked, the trochars were removed, and pneumoperitoneum was relieved. The supraumbilical fascia was closed using 0 Vicryl suture in [id number] fashion. The overlying skin was closed in 4-0 Vicryl Rapide suture in subcuticular fashion. Dressings were then placed, and this portion of the procedure was concluded. Attention was then turned to the mons pubis. Despite repair of the hernia, there was still a large mass on the mons pubis. An incision was created (anum roximately 4 cm in length) over the mass lesion on the mons pubis. Dissection was carried through the subcutaneous tissues. A 9 cm lipoma was identified in the subcutaneous tissues of the mons pubis. This lipoma was removed from the patient. The base of the lipoma was not found to be contiguous with any obvious hernia defect. Hemostasis was ensured. The subcutaneous tissues were closed using 3-0 Vicryl suture in simple interrupted fashion. The overlying skin was closed using 4-0 Vicryl Rapide suture in subcuticular fashion. Dressings were then placed, and the procedure was concluded. All sponge, instrument, and needle counts were correct x2. Condition: Stable. Shelby Henriquez PA-C was scrubbed and present the entirety the procedure. She assisted with all portions of the procedure including placement of the trochars, docking the robot, exchanging of the robotic instruments, closure of the fascia, closure of the skin, excision of the lipoma, closure of the subcutaneous tissu es, and closure of the skin.
--- NOTE | 2020-09-02 10:10 | Discharge Summary ---
Discharge Summary (SDC) - Discharge Final Diagnosis: Indirect right inguinal hernia. Mons pubis lipoma Date of Surgery: 09/02/20 Discharge Date: 09/02/20 Condition: Stable Treatment or Instructions: Discharge home. Diet as tolerated. Activity: No lifting or than 10 pounds x 4 weeks. Follow-up with [facility] in 7 to 10 days. [place] 10/3 2 5 mg p.o. every 6 hours as needed for pain. Okay to shower starting on . No hot tubs or swimming pools x2 weeks. Prescriptions: Hydrocodone/Acetaminophen [[place] 10-325 mg Tablet] 1 tab PO Q6HP PRN #20 tablet PRN Reason: For Pain Referrals: PEDRO CACERES MD [Primary Care Provider] - Discharge Diet: As Tolerated Respiratory Treatments at Home: Deep Breathing/Coughing, Incentive Spirometer Discharge Activity: No Lifting Over 10 Pounds, No Lifting/Push/Pulling Home Care Assistance: None Needed Report the Following to Your Physician Immediately: Shortness of Breath, Nausea, Vomiting, Increase in Pain, Fever over 101 Degrees, Unusual Bleeding, Redness
[2020-09-02 13:00] VITALS: BP 148/90
[2020-09-02] MEDS ORDERED: DEXAMETHASONE SOD PHOSPHATE INJ 4 MG/1 ML VIAL ONE (15:29)
[2020-09-02] MEDS ORDERED: ONDANSETRON HCL INJ/PF 4 MG/2 ML SDV ONE (15:29)
[2020-09-02] MEDS ORDERED: LIDOCAINE 2% INJ-PF (20 MG/ML) 2 ML AMPUL ONE (15:29)
[2020-09-02] MEDS ORDERED: SUCCINYLCHOLINE CHLORIDE INJ 200 MG/10 ML VIAL ONE (15:29)
[2020-09-02] MEDS ORDERED: ROCURONIUM BROMIDE INJ 50 MG/5 ML VIAL IV ONE (15:29)
[2020-09-02] MEDS ORDERED: GLYCOPYRROLATE 1 MG/5 ML VIAL ONE (15:29)
[2020-09-02] MEDS ORDERED: NEOSTIGMINE METHYLSULFATE 10 MG/10 ML VIAL ONE (15:29)
[2020-09-02] MEDS ORDERED: KETOROLAC TROMETHAMINE 60 MG/2 ML SDV ONE (15:29)
== END 2020-09-02 11:40 | disposition home or self-care (01) ==
LOC: OROUT 06:03
PROVIDERS: ATTEND Surgery
DX: K40.90 Unilateral inguinal hernia, without obstruction or gangrene, not specified as recurrent (principal); D17.79 Benign lipomatous neoplasm of other sites; Z79.82 Long term (current) use of aspirin; I10 Essential (primary) hypertension; Z79.899 Other long term (current) drug therapy; Z94.9 Transplanted organ and tissue status, unspecified; Z20.828 Contact with and (suspected) exposure to other viral communicable diseases; Z87.19 Personal history of other diseases of the digestive system
CPT/HCPCS: 36415; 84132; 88304 ×2; 49650; 27043; U0003; A9270; J2250; J0690 ×2; J3490 ×3; J1100; J1885; J3010; J2710; J0330; J2405; J7050; J2704; J1741; C9803; 87635; C1758; C1781; J2270